=== PATIENT | female | born 1945 | race Caucasian/White ===

== ENCOUNTER 2017-07-31 10:26 | Observation (INO) ==
[2017-07-31 11:47] LABS: Basophils # 0.1 10*3/uL (0.0-0.2); Basophils % 0.9 % (0.0-0.8); Eosinophils % 0.4 % (0.00-10.9); Hematocrit 46.2 VOL% (35.7-47.0); Hemoglobin 15.5 GM/DL (12.0-16.0); Immature Granulocytes % 0.2 %; Immature Granulocytes Absolute 0.01 #; Lymphocytes # 1.3 10*3/uL (1.4-4.0); Lymphocytes % 24.2 % (21.3-54.2); Mean Corpuscular HGB Conc 33.5 GM/DL (32-36); Mean Corpuscular Hemoglobin 31 PG (27-34); Mean Corpuscular Volume 91.1 FL (87-102); Mean Platelet Volume 9.4 FL (9.6-12.0); Monocytes # 0.6 10*3/uL (0.11-0.8); Monocytes % 10.1 % (1.7-12.7); Neutrophils # 3.5 10*3/uL (1.4-7.4); Neutrophils % 64.2 % (38.7-73.9); Platelet Count 330 T/CUMM (130-400); Red Blood Count 5.07 MC/CUMM (3.8-5.5); Red Cell Distribution Width 11.8 % (9.3-17.3); White Blood Count 5.4 T/CUMM (4-12)
[2017-07-31 12:09] LABS: Apearance,Urine CLEAR (Clear); Bilirubin,Urine Negative (Negative); Blood, Urine Negative (Negative); Glucose,Urine (UA) Negative (Negative); Hyaline Casts,Urine 1 /LPF (0-3); Ketones,Urine Negative (Negative); Mucus,Urine Occasional /LPF (Occasional); Nitrite,Urine Negative (Negative); Protein,Urine Negative; RBC,Urine <1 /HPF (0-4); Urine Color Yellow (Yellow); Urine Specific Gravity 1.012 (1.001-1.035); Urine Urobilinogen < 2.0 EU/DL (0.2-1.0); WBC,Urine 4 /HPF (0-6)
[2017-07-31 12:24] LABS: Alanine Aminotransferase 30 U/L (13-56); Albumin 3.5 G/DL (3.4-5.0); Alkaline Phosphatase 91 U/L (45-117); Aspartate Amino Transferase 17 U/L (0-37); Bilirubin,Total < 0.39 MG/DL (0.2-1.0); Blood Urea Nitrogen 12 MG/DL (7-18); Calcium 9.5 MG/DL (8.5-10.1); Glucose 93 MG/DL (74-106); Magnesium 2.2 MG/DL (1.8-2.4); Osmolality,Calculated 278.4 MOS/KG (273-304); Potassium 4.1 MMOL/L (3.5-5.1); Sodium 140 MMOL/L (136-145); Total Protein 7.3 G/DL (6.4-8.3)
[2017-07-31 12:51] LABS: Sedimentation Rate-Westergren 47 MM/HR (0-30)
[2017-07-31] MEDS ORDERED: ACETAMINOPHEN 325 MG TABLET PO PRN (15:17)
[2017-07-31] MEDS ORDERED: ONDANSETRON 4 MG/2 ML VIAL IV PRN (15:17)
[2017-07-31] MEDS ORDERED: SODIUM CHLORIDE 0.9% 1,000 ML IV SCH (18:00)
[2017-07-31] MEDS: DOCUSATE SODIUM 100 MG CAPSULE PO SCH (20:44)
[2017-08-01 07:21] LABS: Basophils # 0.1 10*3/uL (0.0-0.2); Basophils % 1.1 % (0.0-0.8); Eosinophils % 0.5 % (0.00-10.9); Hematocrit 34.6 VOL% (35.7-47.0); Immature Granulocytes % 0.3 %; Immature Granulocytes Absolute 0.02 #; Lymphocytes # 1.3 10*3/uL (1.4-4.0); Lymphocytes % 19.5 % (21.3-54.2); Mean Corpuscular HGB Conc 34.1 GM/DL (32-36); Mean Corpuscular Hemoglobin 31 PG (27-34); Mean Platelet Volume 9.7 FL (9.6-12.0); Monocytes # 0.8 10*3/uL (0.11-0.8); Monocytes % 12.5 % (1.7-12.7); Neutrophils # 4.4 10*3/uL (1.4-7.4); Neutrophils % 66.1 % (38.7-73.9); Red Cell Distribution Width 11.9 % (9.3-17.3); White Blood Count 6.6 T/CUMM (4-12)
[2017-08-01 07:38] LABS: Hemoglobin 11.8 GM/DL (12.0-16.0); Platelet Count 426 T/CUMM (130-400); Red Blood Count 3.76 MC/CUMM (3.8-5.5)
[2017-08-01 08:03] LABS: Magnesium 2.2 MG/DL (1.8-2.4); Osmolality,Calculated 281.3 MOS/KG (273-304); Potassium 4.5 MMOL/L (3.5-5.1); Thyroid Stimulating Hormone 1.41 uIU/ml (0.358-3.74)
[2017-08-01] MEDS: DOCUSATE SODIUM 100 MG CAPSULE PO SCH (08:04)
[2017-08-01] MEDS ORDERED: PANTOPRAZOLE 40 MG TABLET PO SCH (09:00)
[2017-08-01 12:02] VITALS: BP 117/71
== END 2017-08-01 17:15 | disposition home health service (06) ==
LOC: N.ED 10:26 → N.EDINP 10:26 → N.4E 15:19
PROVIDERS: ADMIT Family Medicine; ATTEND Family Medicine

== ENCOUNTER 2018-10-01 05:53 | Inpatient (IN) ==
[2018-09-27 14:04] LABS: Basophils # 0.1 10*3/uL (0.0-0.2); Basophils % 1.6 % (0.0-0.8); Eosinophils # 0.1 10*3/uL (0.0-0.87); Eosinophils % 2.6 % (0.00-10.9); Hematocrit 40.1 VOL% (35.7-47.0); Hemoglobin 13.1 GM/DL (12.0-16.0); Immature Granulocytes % 0.2 %; Immature Granulocytes Absolute 0.01 #; Lymphocytes # 1.5 10*3/uL (1.4-4.0); Lymphocytes % 29.8 % (21.3-54.2); Mean Corpuscular HGB Conc 32.7 GM/DL (32-36); Mean Corpuscular Hemoglobin 31 PG (27-34); Mean Corpuscular Volume 94.8 FL (87-102); Monocytes # 0.5 10*3/uL (0.11-0.8); Monocytes % 10.1 % (1.7-12.7); Neutrophils # 2.8 10*3/uL (1.4-7.4); Neutrophils % 55.7 % (38.7-73.9); Platelet Count 276 T/CUMM (130-400); Red Blood Count 4.23 MC/CUMM (3.8-5.5); Red Cell Distribution Width 12.3 % (9.3-17.3)
[2018-09-27 14:33] LABS: Calcium 8.9 MG/DL (8.5-10.1); Osmolality,Calculated 282.1 MOS/KG (273-304); Potassium 3.9 MMOL/L (3.5-5.1)
[2018-10-01] MEDS ORDERED: SCOPOLAMINE 1.5 MG PATCH TRANSDERM ONE ×2 (06:13→06:19)
[2018-10-01] MEDS ORDERED: PANTOPRAZOLE 40 MG TABLET PO STA (06:15)
[2018-10-01] MEDS ORDERED: ceFAZolin 1,000 MG VIAL ONE (06:19)
[2018-10-01] MEDS ORDERED: PANTOPRAZOLE 40 MG TABLET PO ONE (06:19)
[2018-10-01] MEDS ORDERED: ceFAZolin 1,000 MG in SYRINGE 1 EACH IV ONE (06:30)
[2018-10-01] MEDS ORDERED: LACTATED RINGERS 1,000 ML IV SCH (06:30)
[2018-10-01] MEDS ORDERED: TISSUE ADHESIVE 1 EACH APPLICATOR TOP ONE (09:43)
[2018-10-01] MEDS ORDERED: PROPOFOL 200 MG/20 ML VIAL IV ONE (10:30)
[2018-10-01] MEDS ORDERED: PHENYLEPHRINE 1 MG/10 ML SYRINGE IV ONE (10:31)
[2018-10-01] MEDS ORDERED: PHENYLEPHRINE DRIP 20 MG/250 ML PREMIX IV ONE (10:31)
[2018-10-01] MEDS ORDERED: SEVOFLURANE 1 UNIT/15 MINUTE INH ONE (10:31)
[2018-10-01] MEDS ORDERED: MIDAZOLAM 2 MG/2 ML VIAL ONE (10:31)
[2018-10-01] MEDS ORDERED: GLYCOPYRROLATE 0.4 MG/2 ML VIAL ONE (10:31)
[2018-10-01] MEDS ORDERED: DEXAMETHASONE 10 MG/1 ML VIAL ONE (10:31)
[2018-10-01] MEDS ORDERED: ONDANSETRON 4 MG/2 ML VIAL ONE ×2 (10:31→10:33)
[2018-10-01] MEDS ORDERED: MEPERIDINE 25 MG/1 ML VIAL ONE (10:32)
[2018-10-01] MEDS ORDERED: SUCCINYLCHOLINE 200 MG/10 ML VIAL ONE (10:32)
[2018-10-01] MEDS ORDERED: LACTATED RINGERS 1,000 ML IV ONE (10:32)
[2018-10-01] MEDS ORDERED: ROCURONIUM 100 MG/10 ML VIAL IV ONE (10:32)
[2018-10-01] MEDS ORDERED: NEOSTIGMINE 10 MG/10 ML VIAL ONE (10:32)
[2018-10-01] MEDS ORDERED: HYDROmorphone 2 MG/1 ML VIAL ONE (10:33)
[2018-10-01] MEDS ORDERED: PROMETHAZINE 25 MG/1 ML VIAL ONE (10:33)
[2018-10-01] MEDS: HYDROmorphone 2 MG/1 ML VIAL IV PRN ×4 (10:35→10:50)
[2018-10-01] MEDS ORDERED: MEPERIDINE 25 MG/1 ML VIAL IV PRN (10:44)
[2018-10-01] MEDS ORDERED: PROMETHAZINE INJ 25 MG in SODIUM CHLORIDE 0.9% 50 ML IV PRN (10:44)
[2018-10-01] MEDS ORDERED: ONDANSETRON 4 MG/2 ML VIAL IV PRN (10:44)
[2018-10-01] MEDS ORDERED: PROMETHAZINE 25 MG/1 ML VIAL IM PRN (12:32)
[2018-10-01] MEDS ORDERED: HYDROmorphone 2 MG/1 ML VIAL IV PRN (12:32)
[2018-10-01] MEDS: ONDANSETRON 4 MG/2 ML VIAL IV PRN (13:34)
[2018-10-01] MEDS: LACTATED RINGERS 1,000 ML IV SCH (13:40)
[2018-10-01 13:45] LABS: Basophils % 0.3 % (0.0-0.8); Eosinophils % 0.1 % (0.00-10.9); Hematocrit 43.3 VOL% (35.7-47.0); Hemoglobin 13.6 GM/DL (12.0-16.0); Immature Granulocytes % 0.3 %; Immature Granulocytes Absolute 0.05 #; Lymphocytes # 0.8 10*3/uL (1.4-4.0); Lymphocytes % 5.3 % (21.3-54.2); Mean Corpuscular HGB Conc 31.4 GM/DL (32-36); Mean Corpuscular Hemoglobin 31 PG (27-34); Mean Corpuscular Volume 99.5 FL (87-102); Mean Platelet Volume 10.3 FL (9.6-12.0); Monocytes # 0.7 10*3/uL (0.11-0.8); Monocytes % 4.6 % (1.7-12.7); Neutrophils # 12.9 10*3/uL (1.4-7.4); Neutrophils % 89.4 % (38.7-73.9); Platelet Count 263 T/CUMM (130-400); Red Blood Count 4.35 MC/CUMM (3.8-5.5); Red Cell Distribution Width 12.3 % (9.3-17.3); White Blood Count 14.4 T/CUMM (4-12)
[2018-10-01 14:01] LABS: Calcium 8.6 MG/DL (8.5-10.1); Osmolality,Calculated 281.7 MOS/KG (273-304); Potassium 3.7 MMOL/L (3.5-5.1)
[2018-10-01] MEDS: KETOROLAC 15 MG/1 ML VIAL IV SCH ×2 (15:25→20:34)
[2018-10-01] MEDS: PANTOPRAZOLE 40 MG TABLET PO SCH ×2 (15:27→20:37)
[2018-10-02] MEDS: LACTATED RINGERS 1,000 ML IV SCH ×4 (00:16→20:37)
[2018-10-02] MEDS: ONDANSETRON 4 MG/2 ML VIAL IV PRN (00:24)
[2018-10-02] MEDS: KETOROLAC 15 MG/1 ML VIAL IV SCH ×4 (02:54→20:41)
[2018-10-02 06:01] LABS: Basophils % 0.1 % (0.0-0.8); Hemoglobin 11.9 GM/DL (12.0-16.0); Immature Granulocytes % 0.6 %; Immature Granulocytes Absolute 0.08 #; Lymphocytes # 0.9 10*3/uL (1.4-4.0); Mean Corpuscular HGB Conc 33.1 GM/DL (32-36); Mean Corpuscular Hemoglobin 31 PG (27-34); Mean Platelet Volume 10.2 FL (9.6-12.0); Neutrophils # 12.2 10*3/uL (1.4-7.4); Neutrophils % 86.3 % (38.7-73.9); Platelet Count 232 T/CUMM (130-400); Red Blood Count 3.87 MC/CUMM (3.8-5.5); Red Cell Distribution Width 12.6 % (9.3-17.3); White Blood Count 14.1 T/CUMM (4-12)
[2018-10-02] MEDS: ENOXAPARIN 40 MG/0.4 ML SYRINGE SUBCUT SCH (06:11)
[2018-10-02 06:30] LABS: Calcium 8.6 MG/DL (8.5-10.1); Osmolality,Calculated 279.5 MOS/KG (273-304); Potassium 4.3 MMOL/L (3.5-5.1)
[2018-10-02] MEDS: MULTIVITAMIN (CENTRUM) TABLET PO SCH (08:37)
[2018-10-02] MEDS: PANTOPRAZOLE 40 MG TABLET PO SCH (08:37)
[2018-10-02] MEDS ORDERED: ALUMINUM HYDROX PO SCH (09:00)
[2018-10-02] MEDS ORDERED: MAGNESIUM CARB PO SCH (09:00)
[2018-10-02] MEDS ORDERED: MEMANTINE 5 MG TABLET PO SCH (09:00)
[2018-10-02] MEDS ORDERED: [UNRECOGNIZED DRUG - OTHER] PO SCH (09:00)
[2018-10-02] MEDS: CIPROFLOXACIN INJ 400 MG in PREMIX 1 EACH IV SCH ×3 (09:50→23:18)
[2018-10-02] MEDS: metroNIDAZOLE INJ 500 MG in PREMIX 1 EACH IV SCH ×2 (12:30→18:12)
[2018-10-02] MEDS ORDERED: GLUCAGON 1 MG VIAL IM PRN (13:43)
[2018-10-02] MEDS ORDERED: DEXTROSE 50% 25 GM/50 ML SYRINGE IV PRN (13:43)
[2018-10-02] MEDS: FAT EMULSION 20% 250 ML IV SCH (14:26)
[2018-10-02] MEDS ORDERED: DEXTROSE 10% 1,000 ML IV PRN (17:00)
[2018-10-02] MEDS ORDERED: MULTIVITAMIN INJ 10 ML, TRACE ELEMENTS (5) 1 ML in AMINO ACIDS/DEXT/LYTES 5-15% 2,000 ML IV SCH (17:00)
[2018-10-02] MEDS: INSULIN REGULAR 100 UNIT/ML SUBCUT SCH (17:48)
[2018-10-02] MEDS ORDERED: diphenhydrAMINE 50 MG/1 ML VIAL IV ONE (19:49)
[2018-10-02] MEDS: PANTOPRAZOLE 40 MG VIAL IV SCH (20:40)
[2018-10-03] MEDS: INSULIN REGULAR 100 UNIT/ML SUBCUT SCH ×4 (02:09→18:25)
[2018-10-03] MEDS: metroNIDAZOLE INJ 500 MG in PREMIX 1 EACH IV SCH ×3 (02:22→18:26)
[2018-10-03] MEDS: KETOROLAC 15 MG/1 ML VIAL IV SCH ×2 (02:22→08:04)
[2018-10-03 05:05] LABS: Prealbumin 15.5 MG/DL (20-40)
[2018-10-03] MEDS: ENOXAPARIN 40 MG/0.4 ML SYRINGE SUBCUT SCH ×2 (06:03→06:24)
[2018-10-03 06:47] LABS: Basophils # 0.1 10*3/uL (0.0-0.2); Basophils % 0.5 % (0.0-0.8); Hematocrit 35.8 VOL% (35.7-47.0); Hemoglobin 11.6 GM/DL (12.0-16.0); Immature Granulocytes % 0.8 %; Immature Granulocytes Absolute 0.09 #; Lymphocytes # 0.7 10*3/uL (1.4-4.0); Mean Corpuscular HGB Conc 32.4 GM/DL (32-36); Mean Corpuscular Hemoglobin 30 PG (27-34); Mean Corpuscular Volume 93.5 FL (87-102); Mean Platelet Volume 10.3 FL (9.6-12.0); Monocytes # 0.7 10*3/uL (0.11-0.8); Monocytes % 6.6 % (1.7-12.7); Neutrophils # 9.4 10*3/uL (1.4-7.4); Neutrophils % 86.1 % (38.7-73.9); Platelet Count 198 T/CUMM (130-400); Red Blood Count 3.83 MC/CUMM (3.8-5.5); Red Cell Distribution Width 12.9 % (9.3-17.3)
[2018-10-03 06:53] LABS: Calcium 8.5 MG/DL (8.5-10.1); Osmolality,Calculated 282.3 MOS/KG (273-304); Potassium 3.2 MMOL/L (3.5-5.1)
[2018-10-03] MEDS ORDERED: POTASSIUM CHLORIDE RIDER 20 MEQ in PREMIX 1 EACH IV PRN (07:26)
[2018-10-03] MEDS ORDERED: POTASSIUM CHLORIDE RIDER 10 MEQ in PREMIX 1 EACH IV PRN (07:26)
[2018-10-03] MEDS: PANTOPRAZOLE 40 MG VIAL IV SCH ×2 (08:04→20:08)
[2018-10-03] MEDS: MULTIVITAMIN (CENTRUM) TABLET PO SCH (08:08)
[2018-10-03] MEDS: LACTATED RINGERS 1,000 ML IV SCH ×3 (09:28→21:13)
[2018-10-03] MEDS: CIPROFLOXACIN INJ 400 MG in PREMIX 1 EACH IV SCH ×2 (10:33→22:41)
[2018-10-03] MEDS ORDERED: SODIUM PHOSPHATE INJ 30 MMOL in SODIUM CHLORIDE 0.9% 250 ML IV ONE (13:00)
[2018-10-03] MEDS ORDERED: LACTATED RINGERS 1,000 ML IV SCH (13:00)
[2018-10-03] MEDS ORDERED: FUROSEMIDE 40 MG/4 ML VIAL IV ONE (13:02)
[2018-10-03] MEDS ORDERED: KETOROLAC 15 MG/1 ML VIAL IV PRN (13:03)
[2018-10-03] MEDS: FAT EMULSION 20% 250 ML IV SCH (13:43)
[2018-10-03] MEDS ORDERED: MULTIVITAMIN INJ 10 ML, TRACE ELEMENTS (5) 1 ML in AMINO ACIDS/DEXT/LYTES 5-15% 2,000 ML IV SCH (17:00)
[2018-10-04] MEDS: INSULIN REGULAR 100 UNIT/ML SUBCUT SCH ×4 (00:45→18:42)
[2018-10-04] MEDS: metroNIDAZOLE INJ 500 MG in PREMIX 1 EACH IV SCH ×3 (03:54→19:59)
[2018-10-04 05:14] LABS: Basophils # 0.1 10*3/uL (0.0-0.2); Basophils % 0.7 % (0.0-0.8); Eosinophils # 0.1 10*3/uL (0.0-0.87); Eosinophils % 0.8 % (0.00-10.9); Hematocrit 36.1 VOL% (35.7-47.0); Hemoglobin 11.9 GM/DL (12.0-16.0); Immature Granulocytes % 0.5 %; Immature Granulocytes Absolute 0.04 #; Lymphocytes # 0.8 10*3/uL (1.4-4.0); Lymphocytes % 9.3 % (21.3-54.2); Mean Corpuscular Hemoglobin 31 PG (27-34); Mean Corpuscular Volume 93.3 FL (87-102); Mean Platelet Volume 10.8 FL (9.6-12.0); Monocytes # 0.6 10*3/uL (0.11-0.8); Monocytes % 7.6 % (1.7-12.7); Neutrophils # 6.9 10*3/uL (1.4-7.4); Neutrophils % 81.1 % (38.7-73.9); Platelet Count 199 T/CUMM (130-400); Red Blood Count 3.87 MC/CUMM (3.8-5.5); Red Cell Distribution Width 12.6 % (9.3-17.3); White Blood Count 8.5 T/CUMM (4-12)
[2018-10-04 05:42] LABS: Calcium 8.5 MG/DL (8.5-10.1); Osmolality,Calculated 285.1 MOS/KG (273-304); Potassium 3.3 MMOL/L (3.5-5.1)
[2018-10-04] MEDS: ENOXAPARIN 40 MG/0.4 ML SYRINGE SUBCUT SCH (05:42)
[2018-10-04 05:43] LABS: Calcium 8.6 MG/DL (8.5-10.1); Osmolality,Calculated 285.1 MOS/KG (273-304); Potassium 3.3 MMOL/L (3.5-5.1)
[2018-10-04] MEDS: PANTOPRAZOLE 40 MG VIAL IV SCH ×2 (10:36→21:36)
[2018-10-04] MEDS: CIPROFLOXACIN INJ 400 MG in PREMIX 1 EACH IV SCH ×2 (10:39→21:36)
[2018-10-04] MEDS ORDERED: SODIUM PHOSPHATE INJ 15 MMOL in SODIUM CHLORIDE 0.9% 250 ML IV ONE (14:00)
[2018-10-04] MEDS ORDERED: POTASSIUM CHLORIDE IV SCH (17:00)
[2018-10-04] MEDS ORDERED: TRACE ELEMENTS IV SCH (17:00)
[2018-10-04] MEDS ORDERED: MULTIVITAMIN IV SCH (17:00)
[2018-10-04] MEDS ORDERED: [UNRECOGNIZED DRUG - OTHER] IV SCH (17:00)
[2018-10-04] MEDS: FAT EMULSION 20% 250 ML IV SCH (18:36)
[2018-10-04] MEDS: LACTATED RINGERS 1,000 ML IV SCH (18:47)
[2018-10-04] MEDS ORDERED: LORazepam 2 MG/1 ML VIAL IM ONE (19:33)
[2018-10-05] MEDS: INSULIN REGULAR 100 UNIT/ML SUBCUT SCH ×4 (00:17→20:08)
[2018-10-05] MEDS: metroNIDAZOLE INJ 500 MG in PREMIX 1 EACH IV SCH ×3 (03:55→20:00)
[2018-10-05 05:00] LABS: Calcium 8.2 MG/DL (8.5-10.1); Osmolality,Calculated 287.1 MOS/KG (273-304); Potassium 3.3 MMOL/L (3.5-5.1)
[2018-10-05] MEDS: ENOXAPARIN 40 MG/0.4 ML SYRINGE SUBCUT SCH (05:32)
[2018-10-05] MEDS: CIPROFLOXACIN INJ 400 MG in PREMIX 1 EACH IV SCH ×2 (11:12→21:28)
[2018-10-05] MEDS: PANTOPRAZOLE 40 MG VIAL IV SCH ×2 (11:19→21:28)
[2018-10-05] MEDS ORDERED: HALOPERIDOL 5 MG/ML AMP IM PRN (14:42)
[2018-10-05] MEDS: FAT EMULSION 20% 250 ML IV SCH (19:55)
[2018-10-05] MEDS ORDERED: LORazepam 2 MG/1 ML VIAL IM SCH (20:00)
[2018-10-05] MEDS: TRACE ELEMENTS (5) 1 ML, MULTIVITAMIN INJ 10 ML, POTASSIUM CHLORIDE INJ 40 MEQ in AMINO... IV SCH (20:04)
[2018-10-05] MEDS: LACTATED RINGERS 1,000 ML IV SCH (20:07)
[2018-10-05] MEDS: LORazepam 2 MG/1 ML VIAL IM SCH (21:28)
[2018-10-06] MEDS: INSULIN REGULAR 100 UNIT/ML SUBCUT SCH ×5 (00:07→23:24)
[2018-10-06] MEDS: metroNIDAZOLE INJ 500 MG in PREMIX 1 EACH IV SCH ×3 (03:51→18:37)
[2018-10-06 05:15] LABS: Calcium 8.5 MG/DL (8.5-10.1); Osmolality,Calculated 282.4 MOS/KG (273-304); Potassium 3.6 MMOL/L (3.5-5.1)
[2018-10-06] MEDS: ENOXAPARIN 40 MG/0.4 ML SYRINGE SUBCUT SCH (05:38)
[2018-10-06] MEDS: PANTOPRAZOLE 40 MG VIAL IV SCH ×2 (08:32→21:52)
[2018-10-06] MEDS: CIPROFLOXACIN INJ 400 MG in PREMIX 1 EACH IV SCH ×2 (11:07→21:52)
[2018-10-06] MEDS: FAT EMULSION 20% 250 ML IV SCH (14:18)
[2018-10-06] MEDS: LACTATED RINGERS 1,000 ML IV SCH (16:19)
[2018-10-06] MEDS: TRACE ELEMENTS (5) 1 ML, MULTIVITAMIN INJ 10 ML, POTASSIUM CHLORIDE INJ 40 MEQ in AMINO... IV SCH (16:48)
[2018-10-06] MEDS: LORazepam 2 MG/1 ML VIAL IM SCH (21:52)
[2018-10-07] MEDS: metroNIDAZOLE INJ 500 MG in PREMIX 1 EACH IV SCH ×3 (03:34→18:31)
[2018-10-07] MEDS: INSULIN REGULAR 100 UNIT/ML SUBCUT SCH ×3 (05:45→18:15)
[2018-10-07] MEDS: ENOXAPARIN 40 MG/0.4 ML SYRINGE SUBCUT SCH (05:45)
[2018-10-07 05:50] LABS: Calcium 8.3 MG/DL (8.5-10.1); Osmolality,Calculated 284.3 MOS/KG (273-304); Potassium 3.9 MMOL/L (3.5-5.1); Prealbumin 15.5 MG/DL (20-40)
[2018-10-07] MEDS: PANTOPRAZOLE 40 MG VIAL IV SCH ×2 (08:19→21:46)
[2018-10-07] MEDS: CIPROFLOXACIN INJ 400 MG in PREMIX 1 EACH IV SCH ×2 (09:20→23:01)
[2018-10-07] MEDS: FAT EMULSION 20% 250 ML IV SCH (14:18)
[2018-10-07] MEDS: LACTATED RINGERS 1,000 ML IV SCH (16:24)
[2018-10-07] MEDS: TRACE ELEMENTS (5) 1 ML, MULTIVITAMIN INJ 10 ML, POTASSIUM CHLORIDE INJ 40 MEQ in AMINO... IV SCH (18:32)
[2018-10-07] MEDS: LORazepam 2 MG/1 ML VIAL IM SCH (21:54)
[2018-10-08] MEDS: INSULIN REGULAR 100 UNIT/ML SUBCUT SCH ×4 (00:04→18:24)
[2018-10-08] MEDS: metroNIDAZOLE INJ 500 MG in PREMIX 1 EACH IV SCH ×3 (03:28→21:06)
[2018-10-08 05:38] LABS: Basophils # 0.1 10*3/uL (0.0-0.2); Basophils % 1.1 % (0.0-0.8); Eosinophils # 0.4 10*3/uL (0.0-0.87); Eosinophils % 5.4 % (0.00-10.9); Hematocrit 36.4 VOL% (35.7-47.0); Hemoglobin 11.8 GM/DL (12.0-16.0); Immature Granulocytes % 1.6 %; Immature Granulocytes Absolute 0.12 #; Lymphocytes # 1.1 10*3/uL (1.4-4.0); Lymphocytes % 14.6 % (21.3-54.2); Mean Corpuscular HGB Conc 32.4 GM/DL (32-36); Mean Corpuscular Hemoglobin 31 PG (27-34); Mean Corpuscular Volume 94.5 FL (87-102); Mean Platelet Volume 10.7 FL (9.6-12.0); Monocytes # 1.1 10*3/uL (0.11-0.8); Monocytes % 14.7 % (1.7-12.7); Neutrophils # 4.7 10*3/uL (1.4-7.4); Neutrophils % 62.6 % (38.7-73.9); Platelet Count 274 T/CUMM (130-400); Red Blood Count 3.85 MC/CUMM (3.8-5.5); Red Cell Distribution Width 12.9 % (9.3-17.3); White Blood Count 7.6 T/CUMM (4-12)
[2018-10-08 06:11] LABS: Calcium 8.1 MG/DL (8.5-10.1); Osmolality,Calculated 281.4 MOS/KG (273-304); Potassium 4.8 MMOL/L (3.5-5.1)
[2018-10-08] MEDS: ENOXAPARIN 40 MG/0.4 ML SYRINGE SUBCUT SCH (06:18)
[2018-10-08] MEDS: PANTOPRAZOLE 40 MG VIAL IV SCH ×2 (08:27→20:52)
[2018-10-08] MEDS ORDERED: LORazepam 2 MG/1 ML VIAL IM PRN (10:10)
[2018-10-08] MEDS: CIPROFLOXACIN INJ 400 MG in PREMIX 1 EACH IV SCH ×2 (10:30→22:11)
[2018-10-08] MEDS: FAT EMULSION 20% 250 ML IV SCH (15:00)
[2018-10-08] MEDS: TRACE ELEMENTS (5) 1 ML, MULTIVITAMIN INJ 10 ML, POTASSIUM CHLORIDE INJ 40 MEQ in AMINO... IV SCH (18:03)
[2018-10-09] MEDS: LACTATED RINGERS 1,000 ML IV SCH ×3 (00:13→16:00)
[2018-10-09] MEDS: INSULIN REGULAR 100 UNIT/ML SUBCUT SCH ×4 (00:32→17:57)
[2018-10-09] MEDS: metroNIDAZOLE INJ 500 MG in PREMIX 1 EACH IV SCH ×3 (02:23→19:55)
[2018-10-09 05:29] LABS: Calcium 8.5 MG/DL (8.5-10.1); Osmolality,Calculated 278.5 MOS/KG (273-304); Potassium 4.4 MMOL/L (3.5-5.1)
[2018-10-09] MEDS: ENOXAPARIN 40 MG/0.4 ML SYRINGE SUBCUT SCH (05:56)
[2018-10-09] MEDS: PANTOPRAZOLE 40 MG VIAL IV SCH ×2 (08:34→20:02)
[2018-10-09] MEDS: CIPROFLOXACIN INJ 400 MG in PREMIX 1 EACH IV SCH ×2 (10:07→22:17)
[2018-10-09] MEDS: FAT EMULSION 20% 250 ML IV SCH (14:05)
[2018-10-09] MEDS: TRACE ELEMENTS (5) 1 ML, MULTIVITAMIN INJ 10 ML, POTASSIUM CHLORIDE INJ 40 MEQ in AMINO... IV SCH (19:49)
[2018-10-10] MEDS: INSULIN REGULAR 100 UNIT/ML SUBCUT SCH ×4 (00:57→17:30)
[2018-10-10] MEDS: metroNIDAZOLE INJ 500 MG in PREMIX 1 EACH IV SCH ×3 (02:40→18:50)
[2018-10-10 04:53] LABS: Calcium 8.2 MG/DL (8.5-10.1); Osmolality,Calculated 280.5 MOS/KG (273-304); Potassium 4.2 MMOL/L (3.5-5.1); Prealbumin 20.4 MG/DL (20-40)
[2018-10-10] MEDS: ENOXAPARIN 40 MG/0.4 ML SYRINGE SUBCUT SCH (05:45)
[2018-10-10] MEDS: PANTOPRAZOLE 40 MG VIAL IV SCH ×2 (09:04→21:08)
[2018-10-10] MEDS: CIPROFLOXACIN INJ 400 MG in PREMIX 1 EACH IV SCH ×2 (10:34→21:06)
[2018-10-10] MEDS: FAT EMULSION 20% 250 ML IV SCH (13:59)
[2018-10-10] MEDS: LACTATED RINGERS 1,000 ML IV SCH (16:00)
[2018-10-10] MEDS: TRACE ELEMENTS (5) 1 ML, MULTIVITAMIN INJ 10 ML, POTASSIUM CHLORIDE INJ 40 MEQ in AMINO... IV SCH (18:50)
[2018-10-11] MEDS: INSULIN REGULAR 100 UNIT/ML SUBCUT SCH ×5 (00:01→23:34)
[2018-10-11] MEDS: metroNIDAZOLE INJ 500 MG in PREMIX 1 EACH IV SCH ×3 (02:23→19:28)
[2018-10-11] MEDS: ENOXAPARIN 40 MG/0.4 ML SYRINGE SUBCUT SCH (05:46)
[2018-10-11] MEDS: PANTOPRAZOLE 40 MG VIAL IV SCH ×2 (12:55→21:30)
[2018-10-11] MEDS: CIPROFLOXACIN INJ 400 MG in PREMIX 1 EACH IV SCH ×2 (12:55→21:27)
[2018-10-11] MEDS: FAT EMULSION 20% 250 ML IV SCH (15:34)
[2018-10-11] MEDS: TRACE ELEMENTS (5) 1 ML, MULTIVITAMIN INJ 10 ML, POTASSIUM CHLORIDE INJ 40 MEQ in AMINO... IV SCH (17:13)
[2018-10-12] MEDS: metroNIDAZOLE INJ 500 MG in PREMIX 1 EACH IV SCH ×3 (04:00→19:28)
[2018-10-12] MEDS: ENOXAPARIN 40 MG/0.4 ML SYRINGE SUBCUT SCH (06:42)
[2018-10-12] MEDS: INSULIN REGULAR 100 UNIT/ML SUBCUT SCH ×3 (06:42→19:41)
[2018-10-12] MEDS: CIPROFLOXACIN INJ 400 MG in PREMIX 1 EACH IV SCH ×2 (10:05→21:01)
[2018-10-12] MEDS: PANTOPRAZOLE 40 MG VIAL IV SCH ×2 (10:05→20:59)
[2018-10-12] MEDS ORDERED: DEXT 5% NACL 0.45% KCL 40 MEQ 40 MEQ/1,000 ML BAG IV SCH (11:30)
[2018-10-12] MEDS: FAT EMULSION 20% 250 ML IV SCH (15:26)
[2018-10-13] MEDS: INSULIN REGULAR 100 UNIT/ML SUBCUT SCH ×2 (00:42→06:27)
[2018-10-13] MEDS: metroNIDAZOLE INJ 500 MG in PREMIX 1 EACH IV SCH (03:57)
[2018-10-13] MEDS: ENOXAPARIN 40 MG/0.4 ML SYRINGE SUBCUT SCH (05:40)
[2018-10-13 08:43] VITALS: BP 125/70
[2018-10-13] MEDS ORDERED: CIPROFLOXACIN 100 MG/ML 100 ML/BOTTLE PO SCH (09:00)
[2018-10-13] MEDS ORDERED: metroNIDAZOLE 500 MG TABLET PO SCH (09:00)
[2018-10-13] MEDS ORDERED: PANTOPRAZOLE 40 MG TABLET PO SCH (09:00)
== END 2018-10-13 09:12 | disposition home or self-care (01) | DRG 907 ==
LOC: N.SDSINP 05:53 → N.OR 05:53 → N.3E 09:08
PROVIDERS: ADMIT Surgery; ATTEND Surgery